=== PATIENT | female | born 1960 | race Caucasian/White ===

== ENCOUNTER 2025-01-25 00:18 | Emergency (ER) | payer MEDICAID ==
[~2025-01-25] VITALS: Ht 149.9 cm; Wt 108.9 kg
[2025-01-25 00:56] LABS: BASOPHILS ABSOLUTE AUTO 0.07 K/mm3 (0.00-0.23); BASOPHILS PERCENT AUTO 1 % (0-2); EOSINOPHILS ABSOLUTE AUTO 0.33 K/mm3 (0.00-0.68); EOSINOPHILS PERCENT AUTO 5 % (0-6); Hematocrit 41.5 % (33.0-51.0); Hemoglobin 13.5 g/dL (11.5-16.0); IMMATURE GRAN ABSOLUTE AUTO 0.01 K/mm3 (0.00-0.10); IMMATURE GRAN PERCENT AUTO 0 % (0-1); LYMPHOCYTES ABSOLUTE AUTO 2.13 K/mm3 (0.84-5.20); LYMPHOCYTES PERCENT AUTO 31 % (21-46); MONOCYTES ABSOLUTE AUTO 0.49 K/mm3 (0.16-1.47); MONOCYTES PERCENT AUTO 7 % (4-13); Mean Corpuscular HGB Conc 32.5 g/dL (31.5-36.5); Mean Corpuscular Volume 94 fL (80-100); NEUTROPHILS ABSOLUTE AUTO 3.75 K/mm3 (1.96-9.15); NEUTROPHILS PERCENT AUTO 55 % (41-73); NRBC ABSOLUTE 0.00 K/mm3 (0.00-0.02); NRBC Auto 0.0 /100 WBC (0.0-0.2); Platelet Count 315 K/mm3 (150-400); RDW Coefficient Variation 13.4 % (11.7-14.2); RDW Standard Deviation 46.1 fL (35.1-46.3)
[2025-01-25 01:11] LABS: Alanine Aminotransfer (ALT/SGP 33.0 U/L (12-78); Albumin, Blood 3.5 g/dL (3.4-5.0); Albumin/Globulin Ratio 1.1 (0.8-1.8); Anion Gap 7.0 mmol/L (3-11); Aspartate Aminotrans (AST/SGOT 18.0 U/L (12-37); Bilirubin, Total 0.2 mg/dL (0.1-1.0); Blood Urea Nitrogen 18.0 mg/dL (8-24); CO2, Blood 30.0 mmol/L (21-32); Calcium, Blood 8.5 mg/dL (8.5-10.1); Chloride, Blood 106.0 mmol/L (98-108); Creatinine, Blood 0.87 mg/dL (0.40-1.00); Globulin, Blood 3.2 g/dL (2.2-4.0); Glucose, Blood 140.0 mg/dL (70-99); Potassium, Blood 3.7 mmol/L (3.5-5.5); Sodium, Blood 139.0 mmol/L (136-145); Total Protein, Blood 6.7 g/dL (6.4-8.2)
[2025-01-25] MEDS ORDERED: Ipratropium/Albuterol SulF 2.5-0.5MG/3 ML Amp INH ONE (03:10)
[2025-01-25] MEDS ORDERED: IPRAT-ALBUT 0.5-3 ML INH (03:20)
== END 2025-01-25 10:40 | disposition home or self-care (01) ==
LOC: ER 00:18
PROVIDERS: Emergency Medicine
DX: J44.1 Chronic obstructive pulmonary disease with (acute) exacerbation (principal); J96.01 Acute respiratory failure with hypoxia; E03.9 Hypothyroidism, unspecified; Z76.0 Encounter for issue of repeat prescription; Z88.5 Allergy status to narcotic agent; Z99.81 Dependence on supplemental oxygen; Z59.89 Other problems related to housing and economic circumstances
CPT/HCPCS: 71046; 80053; 84484; 85025; 93005; 93010; 99285-25

== ENCOUNTER 2025-02-03 01:27 | Emergency (ER) | payer MEDICAID ==
[~2025-02-03] VITALS: Ht 149.9 cm; Wt 108.9 kg
[~2025-02-03 01:27] MED LIST: IPRAT-ALBUT 0.5-3 ML INH
[2025-02-03 02:10] LABS: BASOPHILS ABSOLUTE AUTO 0.07 K/mm3 (0.00-0.23); BASOPHILS PERCENT AUTO 1 % (0-2); EOSINOPHILS ABSOLUTE AUTO 0.36 K/mm3 (0.00-0.68); EOSINOPHILS PERCENT AUTO 5 % (0-6); Hematocrit 39.7 % (33.0-51.0); Hemoglobin 12.9 g/dL (11.5-16.0); IMMATURE GRAN ABSOLUTE AUTO 0.04 K/mm3 (0.00-0.10); IMMATURE GRAN PERCENT AUTO 1 % (0-1); LYMPHOCYTES ABSOLUTE AUTO 1.92 K/mm3 (0.84-5.20); LYMPHOCYTES PERCENT AUTO 28 % (21-46); MONOCYTES ABSOLUTE AUTO 0.64 K/mm3 (0.16-1.47); MONOCYTES PERCENT AUTO 9 % (4-13); Mean Corpuscular HGB Conc 32.5 g/dL (31.5-36.5); Mean Corpuscular Volume 92 fL (80-100); NEUTROPHILS ABSOLUTE AUTO 3.78 K/mm3 (1.96-9.15); NEUTROPHILS PERCENT AUTO 56 % (41-73); NRBC ABSOLUTE 0.00 K/mm3 (0.00-0.02); NRBC Auto 0.0 /100 WBC (0.0-0.2); Platelet Count 298 K/mm3 (150-400); RDW Coefficient Variation 13.5 % (11.7-14.2); RDW Standard Deviation 45.3 fL (35.1-46.3)
[2025-02-03 02:19] LABS: Alanine Aminotransfer (ALT/SGP 33.0 U/L (12-78); Albumin, Blood 3.4 g/dL (3.4-5.0); Albumin/Globulin Ratio 1.0 (0.8-1.8); Anion Gap 6.0 mmol/L (3-11); Aspartate Aminotrans (AST/SGOT 20.0 U/L (12-37); Bilirubin, Total 0.4 mg/dL (0.1-1.0); Blood Urea Nitrogen 17.0 mg/dL (8-24); CO2, Blood 26.0 mmol/L (21-32); Calcium, Blood 9.0 mg/dL (8.5-10.1); Chloride, Blood 108.0 mmol/L (98-108); Creatinine, Blood 1.04 mg/dL (0.40-1.00); Globulin, Blood 3.3 g/dL (2.2-4.0); Glucose, Blood 114.0 mg/dL (70-99); Potassium, Blood 4.2 mmol/L (3.5-5.5); Sodium, Blood 136.0 mmol/L (136-145); Total Protein, Blood 6.7 g/dL (6.4-8.2)
[2025-02-03] MEDS ORDERED: Prednisone20 MG PO (02:45)
[2025-02-03] MEDS ORDERED: ALBU90OI INH (02:45)
[2025-02-03] MEDS ORDERED: IPRAT-ALBUT 0.5-3 ML INH (02:45)
[2025-02-03 03:31] LABS: Influenza A, PCR NEGATIVE (NEGATIVE); Influenza B, PCR NEGATIVE (NEGATIVE); Resp Syncytial Virus, PCR NEGATIVE (NEGATIVE); SARS-Cov-2 (COVID-19) PCR, MMC NEGATIVE (NEGATIVE)
== END 2025-02-03 02:54 | disposition home or self-care (01) ==
LOC: ER 01:27
PROVIDERS: Emergency Medicine
DX: J44.1 Chronic obstructive pulmonary disease with (acute) exacerbation (principal); E03.9 Hypothyroidism, unspecified; J45.909 Unspecified asthma, uncomplicated; Z86.73 Personal history of transient ischemic attack (TIA), and cerebral infarction without residual deficits; Z88.5 Allergy status to narcotic agent
CPT/HCPCS: 71045; 80053; 83880; 84484; 85025; 87637; 93005; 93010; 99285-25

== ENCOUNTER 2025-02-24 05:55 | Inpatient (IN) | payer OTHER ==
[~2025-02-24] VITALS: Ht 147.3 cm; Wt 108.4 kg
[~2025-02-24 05:55] MED LIST changes: +ALBU90OI INH; +Prednisone20 MG PO
[2025-02-24 06:11] LABS: BASOPHILS ABSOLUTE AUTO 0.07 K/mm3 (0.00-0.23); BASOPHILS PERCENT AUTO 1 % (0-2); EOSINOPHILS ABSOLUTE AUTO 0.73 K/mm3 (0.00-0.68); EOSINOPHILS PERCENT AUTO 9 % (0-6); Hematocrit 41.9 % (33.0-51.0); Hemoglobin 14.0 g/dL (11.5-16.0); IMMATURE GRAN ABSOLUTE AUTO 0.02 K/mm3 (0.00-0.10); IMMATURE GRAN PERCENT AUTO 0 % (0-1); LYMPHOCYTES ABSOLUTE AUTO 1.26 K/mm3 (0.84-5.20); LYMPHOCYTES PERCENT AUTO 16 % (21-46); MONOCYTES ABSOLUTE AUTO 0.73 K/mm3 (0.16-1.47); MONOCYTES PERCENT AUTO 9 % (4-13); Mean Corpuscular HGB Conc 33.4 g/dL (31.5-36.5); Mean Corpuscular Volume 91 fL (80-100); NEUTROPHILS ABSOLUTE AUTO 5.23 K/mm3 (1.96-9.15); NEUTROPHILS PERCENT AUTO 65 % (41-73); NRBC ABSOLUTE 0.00 K/mm3 (0.00-0.02); NRBC Auto 0.0 /100 WBC (0.0-0.2); Platelet Count 343 K/mm3 (150-400); RDW Coefficient Variation 13.7 % (11.7-14.2); RDW Standard Deviation 45.5 fL (35.1-46.3)
[2025-02-24 06:12] LABS: pH Blood Venous 7.39 (7.34-7.37)
[2025-02-24] MEDS ORDERED: Albuterol 2.5 MG/3 ML VIAL INH SCH (06:15)
[2025-02-24] MEDS ORDERED: Magnesium Sulf 2 GM/Water 50ML 50 ML IV ONE (06:20)
[2025-02-24 06:37] LABS: Alanine Aminotransfer (ALT/SGP 24.0 U/L (12-78); Albumin, Blood 3.7 g/dL (3.4-5.0); Albumin/Globulin Ratio 0.9 (0.8-1.8); Anion Gap 6.0 mmol/L (3-11); Aspartate Aminotrans (AST/SGOT 18.0 U/L (12-37); Bilirubin, Total 0.5 mg/dL (0.1-1.0); Blood Urea Nitrogen 15.0 mg/dL (8-24); CO2, Blood 29.0 mmol/L (21-32); Calcium, Blood 9.5 mg/dL (8.5-10.1); Chloride, Blood 105.0 mmol/L (98-108); Creatinine, Blood 0.94 mg/dL (0.40-1.00); Globulin, Blood 3.9 g/dL (2.2-4.0); Glucose, Blood 129.0 mg/dL (70-99); Potassium, Blood 4.2 mmol/L (3.5-5.5); Sodium, Blood 136.0 mmol/L (136-145); Total Protein, Blood 7.6 g/dL (6.4-8.2)
[2025-02-24] MEDS ORDERED: Ipratropium/Albuterol SulF 2.5-0.5MG/3 ML Amp INH SCH (08:10)
[2025-02-24] MEDS ORDERED: FLU VACC TS2025-26(6MOS UP)/PF 45 MCG/0.5 ML SYRINGE IM SCH (08:10)
[2025-02-24] MEDS ORDERED: Ondansetron HCl 2 MG / ML 2ML Vial IV PRN (08:15)
[2025-02-24] MEDS ORDERED: Albuterol 2.5 MG/3 ML VIAL INH PRN (08:15)
--- NOTE | 2025-02-24 09:30 | NUR ---
PT ARRIVES TO UNIT AT APPROX 0925. PT IS ALERT AND ORIENTED, COOPERATIVE W/ CARE. PT ASSISTED TO RR ON ARRIVAL. STANDBY AND LINE ASSIST. PT STS SHE HAS CANE/WALKER AT HOME. BUT DOES NOT USE THEM CONSISTENTLY AND HAS HAD MULTIPLE FALLS. PT STS SHE RECENTLY MOVED FROM [place] TO [place] AND IS LIVING W/ HER TWO SISTERS. ENDORSES SOME FOOD INSECURITY AND STS SHE IS CURRRENTLY WAITING ON FOOD STAMPS APPLICATION FOR ASSISTANCE. PT IS ON 3L O2 VIA NC- SATS >90%. ENDORSES SOB W/ EXERTION. INSPIRATORY WHEEZES T/O ALL LUNG [place]. PT HR 90-100, SINUS/TACH. BP STABLE W/ MAP>65. PT AFEBRILE. PT REPORTS OCCASSIONAL INCONTIINENCE AT HOME. PT HAS GLASSES ON. PT PROVIDED PO FLUIDS/FOODS. TAKES PO MEDICATION W/ OUT INCIDENT. PIV TO L. WRIST PATENT AND SALINE LOCKED CALL LIGHT PROVIDED AND PT VERBALIZED UNDERSTANDING OF USE. SCDS APPLIED ORDERED. PT DENIES FURTHER NEEDS AT THIS TIME. PLAN OF CARE ONGOING.
--- NOTE | 2025-02-24 12:07 | NUR ---
Upon receiving a referral for spiritual care, I visited the patient. She talks at length about the loss of loved ones that she has experienced. Her mother, her dtr and her ex-spouse and several others have in recent times. She also shares about the slow deterioration of her health and the strokes that have been a struggle to come back from. She recently moved to [place] with her two sisters. They are a good support to each other. 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 The ugly truth of her home life growing up contributed to the change to a more Syn[employer] migdalia. I reinforced helpful attitudes and practices and provided therapeutic listening and prayer. The patient responded well and showed signs of an increase in peace and of being encouraged in her migdalia. I will continue to remain available to the patient and the family.
[2025-02-24 12:26] VITALS: BP 160/83
--- NOTE | 2025-02-24 13:04 | NUR ---
REPORT TO SHAQUILLE TOTH, PT TO BE TRANSPORTED TO ROOM 312
[2025-02-24 13:28] VITALS: BP 122/61
[2025-02-24] MEDS ORDERED: IPRAT-ALBUT 0.5-3 ML INH (17:06)
[2025-02-24] MEDS ORDERED: FLUTICASONE-SA1 EA10 INH (17:07)
[2025-02-24] MEDS ORDERED: ATOR80 PO (17:07)
[2025-02-24] MEDS ORDERED: HYDHCL25 PO (17:09)
[2025-02-24] MEDS ORDERED: TRAZ50 PO (17:09)
[2025-02-24] MEDS ORDERED: LEVO-T50 MC1 PO (17:10)
[2025-02-24] MEDS ORDERED: OMEP20ER PO (17:10)
[2025-02-24] MEDS ORDERED: VENLAFAXINE HC225 MG PO (17:10)
[2025-02-24] MEDS ORDERED: MONT10T PO (17:10)
[2025-02-24] MEDS ORDERED: OXYB5 PO (17:11)
[2025-02-24] MEDS ORDERED: TIOT18 INH (19:01)
--- NOTE | 2025-02-24 20:04 | NUR ---
SHIFT SUMMARY- PT IN BED IN RESP DISTRESS. BEDSIDE REPORT COMPLETED PT PLACED ON HIGHER O2 FOR THE DURATION OF REPORT. SATS IN THE 80'S BUT INCREASED TO MID 90'S WITH THE HIGHER FLOW O2. NIGHT RT CALLED FOR TREATMENT THE PT HAS WHEEZES. NIGHT RT AT THE BEDSIDE AT THIS TIME. PT NO LONGER IN DISTRESS.
[2025-02-24 20:31] VITALS: BP 158/65
[2025-02-25 02:40] VITALS: BP 159/81
[2025-02-25 05:10] LABS: BASOPHILS ABSOLUTE AUTO 0.02 K/mm3 (0.00-0.23); BASOPHILS PERCENT AUTO 0 % (0-2); EOSINOPHILS ABSOLUTE AUTO 0.00 K/mm3 (0.00-0.68); EOSINOPHILS PERCENT AUTO 0 % (0-6); Hematocrit 38.1 % (33.0-51.0); Hemoglobin 12.6 g/dL (11.5-16.0); IMMATURE GRAN ABSOLUTE AUTO 0.04 K/mm3 (0.00-0.10); IMMATURE GRAN PERCENT AUTO 1 % (0-1); LYMPHOCYTES ABSOLUTE AUTO 0.75 K/mm3 (0.84-5.20); LYMPHOCYTES PERCENT AUTO 9 % (21-46); MONOCYTES ABSOLUTE AUTO 0.18 K/mm3 (0.16-1.47); MONOCYTES PERCENT AUTO 2 % (4-13); Mean Corpuscular HGB Conc 33.1 g/dL (31.5-36.5); Mean Corpuscular Volume 91 fL (80-100); NEUTROPHILS ABSOLUTE AUTO 7.41 K/mm3 (1.96-9.15); NEUTROPHILS PERCENT AUTO 88 % (41-73); NRBC ABSOLUTE 0.00 K/mm3 (0.00-0.02); NRBC Auto 0.0 /100 WBC (0.0-0.2); Platelet Count 359 K/mm3 (150-400); RDW Coefficient Variation 13.7 % (11.7-14.2); RDW Standard Deviation 45.9 fL (35.1-46.3)
[2025-02-25 05:40] LABS: Alanine Aminotransfer (ALT/SGP 22.0 U/L (12-78); Albumin, Blood 3.4 g/dL (3.4-5.0); Albumin/Globulin Ratio 0.9 (0.8-1.8); Anion Gap 8.0 mmol/L (3-11); Aspartate Aminotrans (AST/SGOT 18.0 U/L (12-37); Bilirubin, Total 0.5 mg/dL (0.1-1.0); Blood Urea Nitrogen 16.0 mg/dL (8-24); CO2, Blood 27.0 mmol/L (21-32); Calcium, Blood 9.6 mg/dL (8.5-10.1); Chloride, Blood 102.0 mmol/L (98-108); Creatinine, Blood 0.78 mg/dL (0.40-1.00); Globulin, Blood 3.6 g/dL (2.2-4.0); Glucose, Blood 160.0 mg/dL (70-99); Potassium, Blood 4.5 mmol/L (3.5-5.5); Sodium, Blood 132.0 mmol/L (136-145); Total Protein, Blood 7.0 g/dL (6.4-8.2)
--- NOTE | 2025-02-25 06:14 | NUR ---
SHIFT SUMMARY PATIENT ADMITTED FOR COPD EXACERBATION. FULL CODE. PATIENT DESATS WITH EXERTION DOWN INTO THE UPPER 70'S. PATIENT ENCOURAGED TO USE BED SIDE COMMODE DUE TO DESATING WHEN AMBULATING TO THE BATHROOM. PATIENT ON 3L OF OXYGEN PER NASAL CANNULA. OXYGEN TURNED UP TO HELP RECOVER. PATIENT USES CPAP AT NIGHT WITH OXYGEN BLEED IN. PATIENT RESTING COMFORTABLY. BED RAILS UP X2. CALL LIGHT WITHIN REACH. BED IN LOWEST POSTION FOR SAFETY.
[2025-02-25 07:30] VITALS: BP 164/85
[2025-02-25] MEDS ORDERED: Formoterol/Mometasone MDI 5/200 mcg 13 GM INH SCH (08:15)
[2025-02-25] MEDS ORDERED: Enoxaparin 40 MG/0.4 ML SYR SC SCH (09:00)
[2025-02-25] MEDS ORDERED: Furosemide 10 MG / ML 2ML Vial IV ONE (13:00)
[2025-02-25 13:16] VITALS: BP 142/106
[2025-02-25 16:11] VITALS: BP 143/56
--- NOTE | 2025-02-25 17:59 | NUR ---
SHIFT SUMMARY- PT ALERT AND ORIENTED INDEPENDENT TO THE BSC. SHE WAS DESATTING TO THE 80'S WITH GOING TO THE BATHROOM. PROVIDED HER WITH THE BSC AND HER SATS STILL DROPPED WITH THAT LITTLE ACTIVITY. SHE REQUIRED 4L AT REST AND 6L WITH TRANSFER TO THE BSC. SPOKE TO ON ROUNDS AND BNP WAS NOT REALLY ELEVATED 20MG IV LASIX WAS ORDERED FOR A OT DOSE D/T HER ACTIVITY INTOLLERANCE. THIS EVENING HER SATS ARE 94-96% ON 3L VIA NC AND BIOX DOES NOT ALARM WHEN THE PT TRANSFERS HERSELF TO THE BSC. PT APPEARS TO BE IMPROVING THIS EVENING.
[2025-02-25 20:25] VITALS: BP 164/59
[2025-02-26 03:22] VITALS: BP 152/62
--- NOTE | 2025-02-26 05:30 | NUR ---
SHIFT SUMMARY; ABLE TO SLEEP IN LONG INTERVALS. WITH OWN BIPAP ON SATS 93-94 ON 3 L BLEED-IN. STILL SOB AND SATS DROP WHEN UP TO BSC. HANNON NOT HAD A BM SINCE SUNDAY.
[2025-02-26 07:38] VITALS: BP 157/50
[2025-02-26 14:47] VITALS: BP 161/69
--- NOTE | 2025-02-26 17:22 | NUR ---
SUMMARY PT MAINTAINING SATS ON 3L NC AT 93-94%. WEAN O2 TO BASELINE 2L TOLERATED. PER PT SHE OCCASIONALLY WILL INCREASE TO 3L AT HOME BUT BASELINE IS 2. HOME BIPAP SET UP IN ROOM. PT CALLING APPROPRIATELY. PT REPORTS NO BOWEL MOVEMENT SINCE SUNDAY, IS CURRENTLY ON 2 DIFFERENT STOOL SOFTENERS ORALLY. SHE IS ANXIOUS TO GO DUE TO HER SHORTNES OF BREATH WITH ACTIVITY. PT GETTING UP IND TO [facility] TO URINATE. PT HAS URGE INCONTINENCE. DR. MILLER ORDERED CT/PE TO RULE OUT PE, DR HAS YET TO GO OVER RESULTS WITH PATIENT BUT FROM BRIEF SUMMARY SHE IS NEGATIVE FOR PE. PRN TYLENOL GIVEN THIS AM FOR A HEADACHE THAT SHE REPORTED WAS IMPROVED AFTER TYLENOL. DR. MILLER TAPERING OFF IV STEROIDS. 2ND IV TO AC PLACED FOR IMAGING. LEFT HAND IV STILL INTACT.
[2025-02-26 22:00] VITALS: BP 166/75
[2025-02-27 04:58] VITALS: BP 135/53
[2025-02-27 05:44] LABS: BASOPHILS ABSOLUTE AUTO 0.01 K/mm3 (0.00-0.23); BASOPHILS PERCENT AUTO 0 % (0-2); EOSINOPHILS ABSOLUTE AUTO 0.00 K/mm3 (0.00-0.68); EOSINOPHILS PERCENT AUTO 0 % (0-6); Hematocrit 38.4 % (33.0-51.0); Hemoglobin 12.5 g/dL (11.5-16.0); IMMATURE GRAN ABSOLUTE AUTO 0.08 K/mm3 (0.00-0.10); IMMATURE GRAN PERCENT AUTO 1 % (0-1); LYMPHOCYTES ABSOLUTE AUTO 0.93 K/mm3 (0.84-5.20); LYMPHOCYTES PERCENT AUTO 9 % (21-46); MONOCYTES ABSOLUTE AUTO 0.38 K/mm3 (0.16-1.47); MONOCYTES PERCENT AUTO 4 % (4-13); Mean Corpuscular HGB Conc 32.6 g/dL (31.5-36.5); Mean Corpuscular Volume 94 fL (80-100); NEUTROPHILS ABSOLUTE AUTO 8.77 K/mm3 (1.96-9.15); NEUTROPHILS PERCENT AUTO 86 % (41-73); NRBC ABSOLUTE 0.00 K/mm3 (0.00-0.02); NRBC Auto 0.0 /100 WBC (0.0-0.2); Platelet Count 371 K/mm3 (150-400); RDW Coefficient Variation 13.9 % (11.7-14.2); RDW Standard Deviation 47.3 fL (35.1-46.3)
[2025-02-27 06:06] LABS: Anion Gap 9.0 mmol/L (3-11); Blood Urea Nitrogen 20.0 mg/dL (8-24); CO2, Blood 30.0 mmol/L (21-32); Calcium, Blood 9.3 mg/dL (8.5-10.1); Chloride, Blood 100.0 mmol/L (98-108); Creatinine, Blood 0.83 mg/dL (0.40-1.00); Glucose, Blood 119.0 mg/dL (70-99); Potassium, Blood 4.5 mmol/L (3.5-5.5); Sodium, Blood 134.0 mmol/L (136-145)
[2025-02-27 07:30] VITALS: BP 143/64
--- NOTE | 2025-02-27 07:41 | NUR ---
SHIFT SUMMARY A/Ox4, VSS ON 2.5L. PT REPORTS FEELING BETTER; MINIMAL COUGH NOTED. UP TO BEDSIDE COMMODE WITH SBA. NO BM AT THIS TIME. PT DENIES SOB, NAUSEA, OTHER COMPLAINTS. CPAP IN USE OVERNIGHT.
[2025-02-27] MEDS ORDERED: Lactobacil 2-S.Thermo-Bifido 1 1 Cap PO SCH (09:00)
[2025-02-27 15:09] VITALS: BP 172/72
[2025-02-27 15:11] VITALS: BP 134/60
[2025-02-27] MEDS ORDERED: Aspir 8181 MG PO (15:16)
[2025-02-27] MEDS ORDERED: Tessalon200 MG PO (15:17)
[2025-02-27] MEDS ORDERED: FURO20 PO (15:17)
[2025-02-27] MEDS ORDERED: AZIT250 PO (15:17)
[2025-02-27] MEDS ORDERED: SENNA LAXATIVE8.6 MG PO (15:18)
[2025-02-27] MEDS ORDERED: VISBIOME 112.51 EACH PO (15:18)
[2025-02-27] MEDS ORDERED: PRED20 PO (15:23)
--- NOTE | 2025-02-27 16:22 | NUR ---
DISCHARGE 1620 DISCHARGE INSTRUCTIONS REVIEWED WITH PATIENT. IV'S REMOVED INTACT. DISCHARGE MEDICATIONS REVIEWED WITH PATIENT. PATIENT ABLE TO VERBALIZE DISCHARGE INSTRUCTIONS BACK TO NURSE. PATIENT LEFT THE FLOOR IN A STABLE CONDITION BY WHEELCHAIR WITH HER SISTERS, WITH ALL OF HER BELONGINGS.
== END 2025-02-27 16:20 | disposition home or self-care (01) | DRG 191 ==
LOC: ER 05:55 → PCU 05:56 → MEDS 13:24 → ENPENDDIS 02-27 14:14 → MEDS 02-27 16:20
PROVIDERS: Emergency Medicine; ADMIT Internal Medicine
PROC: 5A09357 Assistance with Respiratory Ventilation, Less than 24 Consecutive Hours, Continuous Positive Airway Pressure (ICD-10-PCS; principal; 2025-02-24)
DX: J44.1 Chronic obstructive pulmonary disease with (acute) exacerbation (principal); J96.11 Chronic respiratory failure with hypoxia; Z68.43 Body mass index [BMI] 50.0-59.9, adult; F41.8 Other specified anxiety disorders; E03.9 Hypothyroidism, unspecified; R32 Unspecified urinary incontinence; J20.9 Acute bronchitis, unspecified; J44.0 Chronic obstructive pulmonary disease with (acute) lower respiratory infection; E66.9 Obesity, unspecified; J43.9 Emphysema, unspecified; Z88.5 Allergy status to narcotic agent; Z86.73 Personal history of transient ischemic attack (TIA), and cerebral infarction without residual deficits; Z79.52 Long term (current) use of systemic steroids; Z87.891 Personal history of nicotine dependence; Z79.82 Long term (current) use of aspirin
CPT/HCPCS: 36415; 71045; 71260; 80048; 80053; 82803; 83880; 84484; 85025; 87070; 87205; 93005; 93010; 93306; 94640; 94660; 94664; 94760; 94761; 94762; 96365; 96366; 96375; 99285-25; A9270; G0378; J1650; J1938; J2919; J3475; J7120; Q9967